=== PATIENT | male | born 1965 | race Caucasian/White ===

== ENCOUNTER 2020-11-20 12:45 | Outpatient (CLI) | payer MEDICARE, SELFPAY ==
--- NOTE | ~2020-11-20 | XR_ITS ---
XR hand LT min 3V DATE: 11/20/2020 13:06 INDICATION: Left hand pain. Hyperextension injury of first digit one year ago, with pain since then TECHNIQUE: 3 views COMPARISON: None FINDINGS: There is moderately prominent osteoarthritic change and medial subluxation at the first met atarsophalangeal joint. No fracture, dislocation, periosteal reaction or bone destruction. 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 IMPRESSION: Moderate osteoarthritis and medial subluxation at first metatarsoph alangeal joint
== END 2020-11-20 12:46 | disposition home or self-care (01) ==
PROVIDERS: Visit Provider Orthopaedic Surgery
DX: M19.072 Primary osteoarthritis, left ankle and foot (principal)
CPT/HCPCS: 73130

== ENCOUNTER 2022-04-17 10:09 | Emergency (ER) | payer MEDICARE, SELFPAY ==
[2022-04-17 10:28] VITALS: BP 135/90; PULSE 100; RESP 16; TEMP 36.9; O2SAT 99
[2022-04-17] MEDS: HYDROGEN PEROXIDE 3% SOLN(*SP) 473 ML BOTTLE (10:42)
[2022-04-17] MEDS: LIDOCAINE HCL 2% VISC SOLN 15 ML UDC PO (10:42)
--- NOTE | 2022-04-17 11:09 | ED.EAR ---
HPI - Ear Problem General Chief complaint: Ear Stated complaint: left ear pain x 1 week - foreign object in ear Time Seen by Provider: 04/17/22 10:29 History of Present Illness HPI Narrative: 56-year-old male presents to the emergency room complaints of left ear pain. Patient states yesterday his neighbor witnessed a spider crawling out of his ear. Patient states that he can feel something crawling around in his ear for the last 1 week. Denies any hearing changes or trauma to his ear. Related Data Home Medications Medication Instructions Recorded Confirmed albuterol sulfate continuous nebulization 11/21/20 fluticasone furoate-vilanterol inhalation 11/21/20 [Breo Ellipta] fluticasone propionate [Flonase intranasal 11/21/20 Allergy Relief] ipratropium bromide [Atrovent HFA] inhalation 11/21/20 venlafaxine [Effexor XR] PO 11/21/20 Allergies Allergy/AdvReac Type Severity Reaction Status Date / Time codeine Allergy Unknown Unknown Verified 04/17/22 10:10 tramadol Allergy nausea Verified 04/17/22 10:10 Review of Systems Review of Systems: CONSTITUTIONAL: Denies fever, chills, or sweats. EYES: Denies visual changes, redness, or discharge. ENT: Reports left ear pain CARDIOVASCULAR: Denies chest pain, palpitations, or edema. RESPIRATORY: Denies cough or dyspnea. GASTROINTESTINAL: Denies abdominal pain, nausea, vomiting, or diarrhea. GENITOURINARY: Denies dysuria or hematuria. SKIN: Denies rash or itching. MUSCULOSKELETAL: Denies back pain, joint pain, or myalgia. NEUROLOGIC: Denies headache, numbness, dizziness, or weakness. PSYCHIATRIC: Denies anxiety or depression. [facility] Past Medical History Medical History Abdominal pain Alcoholism Anxiety Arthritis COPD (chronic obstructive pulmonary disease) Depression Sleep disorder Subluxation of metacarpophalangeal joint of thumb Urinary hesitancy Vision changes Family History Family History Father Family history of schizophrenia Mother Family history of lung cancer Family history of malignant neoplasm Other Arthritis Depression Diabetes mellitus Lung disease Social History Social History Smoking packs per day: 1 Smoking cigarettes per day: 20.0 Years smoked: 36 Smoking pack-years: 36.00 Smoking status: Current every day smoker Tobacco type: cigarettes Alcohol intake: current Drinks per week: 12 Substance use: current Substance use type: marijuana Exam Narrative: GENERAL: Well-appearing, well-nourished, no physical limitations, and in no acute distress. HEAD: Normocephalic, atraumatic. EYES: Conjunctivae normal, PERRLA and EOMI. ENT: Lt ear: Partial cerumen impaction, TM is erythematous NECK: Supple. No meningeal signs. No adenopathy or masses. No carotid bruits or JVD CHEST: Clear to auscultation. No respiratory distress. No wheezes rales or rhonchi. No tenderness. HEART: Regular rate and rhythm. No murmur heard. Normal peripheral pulses. ABDOMEN: Soft, nontender, nondistended, normal active bowel sounds. : Normal external male/female exam. BACK: No CVA tenderness; No cervical/thoracic/lumbar tenderness, step-offs, bony abnormality; FROM EXTREMITIES: Normal range of motion. No edema. No clubbing or cyanosis SKIN: Warm, dry, no rash. No noted wounds NEURO: No focal deficits. Alert and oriented x3. MAEW. CN's II-XI intact bilaterally, normal gait PSYCH: Cooperative. Normal mood and affect. Course Vital Signs Vital signs: Vital Signs Temperature 36.9 C 04/17/22 10:28 Pulse Rate 100 04/17/22 10:28 Respiratory Rate 16 04/17/22 10:28 Blood Pressure 135/90 04/17/22 10:28 Pulse Oximetry 99 04/17/22 10:28 Temperature 36.9 C 04/17/22 10:28 Pulse Rate 100 04/17/22 10:28 Respiratory Rate 16 04/17/22 10:28 Blood Pressure
[2022-04-17 11:57] VITALS: BP 144/84; PULSE 86; RESP 18; O2SAT 99
== END 2022-04-17 11:58 | disposition home or self-care (01) ==
LOC: ANHED 11:34
PROVIDERS: Emergency Provider Nurse Practitioner Family
DX: H66.92 Otitis media, unspecified, left ear (principal); H61.22 Impacted cerumen, left ear; M19.90 Unspecified osteoarthritis, unspecified site; J44.9 Chronic obstructive pulmonary disease, unspecified; F41.9 Anxiety disorder, unspecified; F32.A Depression, unspecified; G47.9 Sleep disorder, unspecified; F17.210 Nicotine dependence, cigarettes, uncomplicated
CPT/HCPCS: 69209; 99283; A9270